=== PATIENT | male | born 1950 | race Two or more races ===

== ENCOUNTER → 2020-06-19 08:25 | Outpatient (CLI) | payer OTHER | END | disposition home or self-care (01) | LOC: PPH VACUNA 08:25 | PROVIDERS: ATTEND Emergency Medicine Pediatric Emergency Medicine | DX: Z23 Encounter for immunization (principal) ==

== ENCOUNTER → 2024-09-07 | Emergency (ER) | payer OTHER ==
[~2024-09-07] VITALS: Ht 177.8 cm; Wt 75.7 kg
[~2024-09-07] MED LIST: CEFTRIAXONE SODIUM 1,000 MG VIAL IM ONE; CEFTRIAXONE SODIUM 1,000 MG VIAL ONE; LEVOFLOXACIN750 MG PO; LIDOCAINE HCL 1% 10ML VIAL ONE; TAMS0.4C PO
[2024-09-07 13:16] LABS: BASO % 0.9 % (0.1-1.2); EOS # 0.13 (0.04-0.54); EOS % 2.2 % (0.7-7.0); HEMOGLOBIN 16.2 g/dL (13.7-17.5); LYMPH # 1.41 (1.18-3.74); MEAN CORPUSCULAR HEMOGLOBIN 30.7 pg (25.6-32.2); MONO # 0.56 (0.24-0.82); MONO % 9.5 % (4.7-12.5); NEUT # 3.71 (1.56-6.13); NEUT % 63.2 % (34.0-71.1); PLATELET COUNT 185 K/uL (163-369); RED BLOOD COUNT 5.28 M/uL (4.63-6.08); RED CELL DISTRIBUTION WIDTH 12.4 % (11.6-14.4)
[2024-09-07 13:23] LABS: URINE APPEARANCE Cloudy; URINE BILIRRUBIN Negative (NEGATIVE); URINE BLOOD Large; URINE COLOR Yellow; URINE GLUCOSE Negative (NEGATIVE); URINE KETONE Trace (NEGATIVE); URINE LEUKOCYTE Moderate; URINE NITRATE Negative; URINE PROTEIN Trace (NEGATIVE)
[2024-09-07 13:24] LABS: URINE EPITHELIAL CELLS 5.2 uL (0.0-38.8); URINE WBC 477.6 uL (0.0-23.2)
[2024-09-07 14:57] LABS: ALBUMIN 4.2 gm/dL (3.4-5.0); BILIRUBIN TOTAL 0.39 mg/dL (0.3-1.2); CALCIUM 9.9 mg/dL (8.5-10.1); CREATININE SERUM 1.05 mg/dL (0.70-1.30); GFR 68.67; GLOBULINA 3.3 G/DL (2.4-3.5); POTASSIUM 5.1 mEq/L (3.5-5.1); TOTAL PROTEIN 7.5 gm/dL (6.4-8.2)
[2024-09-07 14:59] LABS: PROSTATIC SPECIFIC ANTIGEN 13.9 NG/ML (0.010-4.00)
== END | disposition home or self-care (01) ==
LOC: ER 11:40
PROVIDERS: General Practice
DX: N39.0 Urinary tract infection, site not specified (principal)
CPT/HCPCS: 36415; 96372; 99282; J0696